=== PATIENT | male | born 1945 | race African-American/Black ===

== ENCOUNTER 2017-09-20 22:56 | Emergency (ER) | payer MEDICARE ==
[2017-09-20] MEDS ORDERED: Lidocaine 1% w/Epinephrine 1:100K 20 ML VIAL ONE (23:07)
[2017-09-20] MEDS ORDERED: Bupivacaine 0.5% 10 ML VIAL ONE (23:13)
== END 2017-09-20 23:44 | disposition home or self-care (01) ==
LOC: ERS 22:56
DX: K06.8 Other specified disorders of gingiva and edentulous alveolar ridge (principal); Z79.82 Long term (current) use of aspirin; Z79.899 Other long term (current) drug therapy
CPT/HCPCS: 64400; J2001; J3490

== ENCOUNTER 2019-03-02 17:28 | Emergency (ER) | payer MEDICARE | END 2019-03-02 18:06 | disposition home or self-care (01) | LOC: SCSER 17:28 | DX: R09.81 Nasal congestion (principal); R05 Cough; Z79.899 Other long term (current) drug therapy; Z79.82 Long term (current) use of aspirin; Z79.01 Long term (current) use of anticoagulants | CPT/HCPCS: 93005 ==